=== PATIENT | female | born 1970 ===

== ENCOUNTER → 2018-09-30 | Outpatient (CLI) | payer BC ==
[2018-10-02 14:08] LABS: HPV 16 Negative (Negative); HPV 18 Negative (Negative); HPV OTHER HR TYPES Negative (Negative)
== END | disposition home or self-care (01) ==
LOC: LAB 15:53 → LAB SHORT 15:53
PROVIDERS: Nurse Practitioner Family
DX: Z01.411 Encounter for gynecological examination (general) (routine) with abnormal findings (principal)
CPT/HCPCS: 87624; G0145

== ENCOUNTER 2018-12-12 01:44 | Emergency (ER) | payer BC ==
[~2018-12-12] VITALS: Ht 165.1 cm; Wt 63.5 kg
[2018-12-12 02:30] LABS: Source, Urine Clean Catch
[2018-12-12 02:38] LABS: Bilirubin, Urine Neg (Neg); Blood, Urine 5+ (Neg); Glucose Qualitative, Urine Neg (Neg); Ketones, Urine Neg (Neg); Leukocyte Esterase, Urine 3+ (Neg); Nitrite, Urine Pos (Neg); Protein, Urine 4+ (Neg); Specific Gravity, Urine 1.015 (1.003-1.022); Urobilinogen, Urine NORM (Normal); pH, Urine 6.5 (5.0-8.0)
[2018-12-12 02:49] LABS: Appearance, Urine Cloudy (Clear); Color, Urine Red (P-Yellow)
[2018-12-12 02:50] LABS: Bacteria Mod /hpf; Red Blood Cells, Urine TNTC /hpf (0-2); Squamous Epithelial Cells Few /hpf (Few)
[2018-12-12] MEDS ORDERED: Pyridium100 MG PO (03:13)
[2018-12-12] MEDS ORDERED: CEPH500 PO (03:13)
== END 2018-12-12 03:26 | disposition home or self-care (01) ==
LOC: ER 01:44
PROVIDERS: Emergency Medicine
DX: N30.91 Cystitis, unspecified with hematuria (principal)
CPT/HCPCS: 81001; 87077; 87086; 87186; 99283

== ENCOUNTER → 2018-12-24 | Outpatient (CLI) | payer BC ==
[~2018-12-24] MED LIST: CEPH500 PO; Pyridium100 MG PO
== END | disposition home or self-care (01) ==
LOC: LAB SHORT 12:15 → LAB EV 12:15
DX: N30.91 Cystitis, unspecified with hematuria (principal)
CPT/HCPCS: 87086

== ENCOUNTER → 2021-05-10 | Outpatient (CLI) | payer BC | END | disposition home or self-care (01) | LOC: LAB 11:28 → LAB SHORT 11:28 | DX: D22.5 Melanocytic nevi of trunk (principal) | CPT/HCPCS: 88305 ==